=== PATIENT | female | born 1995 | race Caucasian/White ===

== ENCOUNTER 2016-08-09 17:23 | Emergency (ER) | payer MEDICAID, OTHER ==
[~2016-08-09] VITALS: Ht 157.5 cm; Wt 97.5 kg
--- OUTSIDE RECORDS SUMMARY | 2016-08-09 17:32 | XMS REPORT | Continuity of Care Document ---
Author Author Interface Organization Interface Address Unknown Phone Unavailable Problems Problem Status Onset Date Classification Date Reported Comments Source Headache 04/13/2016 04/18/2016 [facility] Visual discomfort, unspecified 04/18/2016 [facility] Nausea with vomiting, unspecified 04/18/2016 [facility] Obesity, unspecified Active Problem 04/18/2016 Added based on documentation of BMI=39.8. [facility] Patient currently (finding) Resolved 12/23/2013 Problem 04/18/2016 [facility] Medications Medication Details Route Status Patient Instructions Ordering Provider Order Date Source Ibuprofen 800 MG Oral Tablet [Motrin] </br>=800 mg, 1 tab, PO, TID, # 40 tab, 0 Refill(s) Active [facility] ferrous sulfate 325 mg oral tablet </br>1 tab, PO, Daily, # 30 tab, 3 Refill(s) Active [facility] multivitamin, Multivitamins oral tablet </br>1 tab, PO, Daily, # 30 tab, 6 Refill(s) Inactive [facility] Docusate Sodium 100 MG Oral Capsule [Colace] </br>=100 mg, 1 cap, PO, BID, PRN for constipation, # 20 cap, 0 Refill(s) Active [facility] {28 (Norethindrone 0.35 MG Oral Tablet) } Pack [Ortho Micronor 28 Day] </br>=0.35 mg, 1 tab, PO, Daily, # 28 tab, 5 Refill(s) Active [facility] ibuprofen 800 mg oral tablet </br>=800 mg, 1 tab, PO, Q8H, # 30 tab, 0 Refill(s) Inactive [facility] Motrin 800 mg oral tablet =800 mg, 1 tab, PO, TID, # 40 tab, 0 Refill(s) Active [facility] Colace sodium 100 mg oral capsule =100 mg, 1 cap, PO, BID, PRN for constipation, # 20 cap, 0 Refill(s) Active [facility] Ortho Micronor 0.35 mg oral tablet =0.35 mg, 1 tab, PO , Daily, # 28 tab, 5 Refill(s) Active [facility] Allergies, Adverse Reactions, Alerts Substance Category Reaction Severity Reaction type Status Date Reported Comments Source penicillins drug allergy Allergy Active [facility] penicillins Assertion Drug allergy [facility] Immunizations Immunization Date Given Site Status Last Updated Comments Source No data available for this section No data available for this section [facility] Results Order Name Results Value Reference Range Date Interpretation Comments Source Patient Viewable Results UA Bili Negative </br>(12/23/2013 11:04:00) <sup> </sup> Negative 12/23/2013 [facility] Patient Viewable Results UA Urobilinogen 0.2 mg/dL 0.2 - 1.0 12/23/2013 [facility] Patient Viewable Results UA Ketones Negative </br>(12/23/2013 11:04:00) <sup> </sup> Negative 12/23/2013 [facility] Patient Viewable Results UA Blood Trace </br>*ABN* </br>(12/23/2013 11:04:00) <sup> </sup> Negative 12/23/2013 [facility] Patient Viewable Results UA Nitrite Negative </br>(12/23/2013 11:04:00) <sup> </sup> Negative 12/23/2013 [facility] Patient Viewable Results UA Protein Negative </br>(12/23/2013 11:04:00) <sup> </sup> Negative 12/23/2013 [facility] Patient Viewable Results UA pH 6.0 </br>(12/23/2013 11:04:00) <sup> </sup> 4.5 - 8.0 12/23/2013 [facility] Patient Viewable Results UA Glucose Negative </br>(12/23/2013 11:04:00) <sup> </sup> Negative 12/23/2013 [facility] Patient Viewable Results UA Sp Grav 1.015 1.003 - 1.030 12/23/2013 [facility] Patient Viewable Results UA Appearance Clear </br>(12/23/2013 11:04:00) <sup> </sup> Clear 12/23/2013 [facility] Patient Viewable Results UA Color Yellow </br>(12/23/2013 11:04:00) <sup> </sup> Yellow 12/23/2013 [facility] Patient Viewable Results UA Leuk Est Negative </br>(12/23/2013 11:04:00) <sup> </sup> Negative 12/23/2013 [facility] Patient Viewable Results NRBC Auto 0.0 /100WBC 2013 [facility] Patient Viewable Results Eos 0.10 10^3/cmm 0.00 - 0.70 02/2014 [facility] Patient Viewable Results Baso 0.10 10^3/cmm 0.00 - 0.15 12/25/2013 [facility] Patient Viewable Results Lymph 2.0 10^3/cmm 1.2 - 3.5 02/2014 [facility] Patient Viewable Results Simpson 1.6 10^3/cmm 0.0 - 0.6 02/2014 [facility] Patient Viewable Results Gran 13.3 10^3/cmm 1.4 - 7.0 02/2014 [facility] Patient Viewable Results Hematocrit 36.9 % 34.0 - 47.0 [facility] Patient Viewable Results MCV 79.4 FL 80.0 - 100.0 2013 [facility] Patient Viewable Results MCHC 31.9 % 32.0 - 36.0 2013 [facility] Patient Viewable Results RDW 16.3 % 11.5 - 14.5 2013 [facility] Patient Viewable Results MCH 25.4 PG 27.0 - 34.0 2013 [facility] Patient Viewable Results Baso % 0.5 % 0.0 - 2.0 2013 [facility] Patient Viewable Results Plt 200 10^3/cmm 150 - 400 2013 [facility] Patient Viewable Results MPV 9.3 FL 7.4 - 10.4 12/25/2013 [facility] Patient Viewable Results Lymph % 11.7 % 22.0 - 50.0 12/25 [facility] Patient Viewable Results Simpson % 9.4 % 1.0 - 9.0 2013 [facility] Patient Viewable Results Gran % 77.9 % 45.0 - 74.0 2013 [facility] Patient Viewable Results Eos % 0.5 % 1.0 - 8.0 2013 [facility] Patient Viewable Results WBC 17.00 10^3/cmm 4.30 - 10.80 12/25/2013 [facility] Patient Viewable Results RBC 4.64 10^6/cmm 4.20 - 5.20 02/2014 [facility] Patient Viewable Results Hemoglobin 11.8 g/dL 12.0 - 16.0 12/25/2013 [facility] Patient Viewable Results ANTIBODY SCREEN Negative </br>(12/23/2013 12:17:00) <sup> </sup> 12/23/2013 [facility] Patient Viewable Results NRBC Auto 0.0 /100WBC 2013 [facility] Patient Viewable Results Baso 0.00 10^3/cmm 0.00 - 0.15 12/23/2013 [facility] Patient Viewable Results Eos 0.00 10^3/cmm 0.00 - 0.70 12/2013 [facility] Patient Viewable Results MPV 8.8 FL 7.4 - 10.4 12/23/2013 [facility] Patient Viewable Results Plt 207 10^3/cmm 150 - 400 2013 [facility] Patient Viewable Results RDW 16.0 % 11.5 - 14.5 2013 [facility] Patient Viewable Results MCHC 33.0 % 32.0 - 36.0 2013 [facility] Patient Viewable Results MCH 26.0 PG 27.0 - 34.0 2013 [facility] Patient Viewable Results Simpson % 9.0 % 1.0 - 9.0 2013 [facility] Patient Viewable Results Lymph % 14.2 % 22.0 - 50.0 12/23 [facility] Patient Viewable Results Lymph 1.1 10^3/cmm 1.2 - 3.5 12/2013 [facility] Patient Viewable Results Baso % 0.2 % 0.0 - 2.0 2013 [facility] Patient Viewable Results Eos % 0.5 % 1.0 - 8.0 2013 [facility] Patient Viewable Results Simpson 0.7 10^3/cmm 0.0 - 0.6 12/2013 [facility] Patient Viewable Results Gran % 76.1 % 45.0 - 74.0 2013 [facility] Patient Viewable Results Gran 6.0 10^3/cmm 1.4 - 7.0 12/2013 [facility] Patient Viewable Results MCV 78.6 FL 80.0 - 100.0 2013 [facility] Patient Viewable Results Hematocrit 38.3 % 34.0 - 47.0 [facility] Patient Viewable Results RBC 4.87 10^6/cmm 4.20 - 5.20 12/2013 [facility] Patient Viewable Results Hemoglobin 12.6 g/dL 12.0 - 16.0 12/23/2013 [facility] Patient Viewable Results WBC 7.90 10^3/cmm 4.30 - 10.80 [facility] Patient Viewable Results ABORH TYPE A POS 12/23/2013 [facility] Patient Viewable Results ABORH TYPE A POS 12/25/2013 [facility] Patient Viewable Results UA Bacteria 1+ </br>*ABN* </br>(12/23/2013 11:04:00) <sup> </sup> 12/23/2013 [facility] Patient Viewable Results UA Squam Epith 5-10 /HPF 12/23 [facility] Patient Viewable Results UA Mucus Trace </br>*ABN* </br>(12/23/2013 11:04:00) <sup> </sup> 12/23/2013 [facility] Patient Viewable Results UA RBC 0-2 /HPF 0 - 3 2013 [facility] Patient Viewable Results UA WBC 0-2 /HPF 0 - 2 2013 [facility] ED Note - Provider ED Note - Provider Patient: ANA MASON Age: 20 years Sex: Female : 89 Associated Diagnoses: None Author: Ryley Callejas Basic Information Additional information: Chief Complaint from Nursing Triage Note : Chief Complaint 04/13/16 11:40 Chief Complaint C/O HEADACHE SINCE YESTERDAY. REPORTS N/V WELL. . History of Present Illness 20yo otherwise healthy female p/w cc: migratory frontal GILBERT with associated photophobia, phonophobia and nausea, with onset yesterday AM. Pain is bilateral frontal, L>R, and moves between forehead and L>R eyes. Character is throbbing and waxes and wanes. Better but not completely alleviated with Advil at home. Pt denies fevers, lightheadedness / vertigo / focal weakness / numbness / tingling, SOA/CP, abd pain. Review of Systems Constitutional symptoms: Negative except as documented in HPI. Skin symptoms: Negative except as documented in HPI. Eye symptoms: Negative except as documented in HPI. ENMT symptoms: Negative except as documented in HPI. Respiratory symptoms: Negative except as documented in HPI. Cardiovascular symptoms: Negative except as documented in HPI. Gastrointestinal symptoms: Negative except as documented in HPI. Genitourinary symptoms: Negative except as documented in HPI. Musculoskeletal symptoms: Negative except as documented in HPI. Neurologic symptoms: Negative except as documented in HPI. Psychiatric symptoms: Negative except as documented in HPI. Endocrine symptoms: Negative except as documented in HPI. Hematologic/Lymphatic symptoms: Negative except as documented in HPI. Allergy/immunologic symptoms: Negative except as documented in HPI. Health Status Allergies: Allergic Reactions (Selected) Severity Not Documented Penicillins- No reactions were documented.. Medications: (Selected) Prescriptions Prescribed Colace sodium 100 mg oral capsule: 100 mg, 1 cap, PO, BID, 20 cap, PRN: for constipation Motrin 800 mg oral tablet: 800 mg, 1 tab, PO, TID, 40 tab Ortho Micronor 0.35 mg oral tablet: 0.35 mg, 1 tab, PO, Daily, 28 tab ferrous sulfate 325 mg oral tablet: 1 tab, PO, Daily, 30 tab multivitamin, Multivitamins oral tablet: 1 tab, PO, Daily, 30 tab. Past Medical/ Family/ Social History PMH: Denies PSxHx: Denies PObHx: 13wk SAB PGyn Hx: Denies STDs. No h/o abn paps PSocHx: Denies drugs, EtOH. Reports tobacco use Meds: PNV, ranitidine Allergies: pcn Physical Examination Vital Signs Vital Signs 04/13/16 11:40 Temperature Route Oral Temperature Oral 98.4 DegF Heart Rate 80 bpm Resp. Rate 16 BRMIN Systolic BP 106 mmHg Diastolic BP 59 mmHg LOW Oxygen Saturation 96 % Oxygen Therapy Room air . General: Alert, no acute distress. Skin: Warm, dry, no pallor, no rash. Head: Normocephalic, atraumatic. Neck: Supple, no tenderness. Eye: Pupils are equal, round and reactive to light, normal conjunctiva. Ears, nose, mouth and throat: Oral mucosa moist, no pharyngeal erythema or exudate. Cardiovascular: Regular rate and rhythm, Normal peripheral perfusion, No edema. Respiratory: Lungs are clear to auscultation, respirations are non-labored, breath sounds are equal, Symmetrical chest wall expansion. Gastrointestinal: Soft, Nontender, Non distended. Back: Nontender, Normal alignment. Speech - regular rate, volume and tone Language: fluent and spontaneous speech CN 2: PERRL CN 3, 4, 6: EOM intact, no nystagmus CN 5: Normal sensation to light touch CN 7: No facial droop CN 8: Equal hearing to finger rub CN 9/10: Intact CN 11: Normal shoulder shrug bilaterally CN 12: Tongue midline Motor exam: Bilateral upper and lower extremities with normal tone, 5/5 strength. No pronator drift. Coordination: Finger to nose normal Gait: steady, narrow gait.. Medical Decision Making Documents reviewed: Emergency department nurses' notes, emergency department records, prior records. Orders Launch Orders Patient Care: Peripheral IV Insertion (Order): 04/13/16 14:46 Pharmacy: Benadryl (Order): 25 mg, IVPush, ONCE Toradol (Order): 30 mg, IVPush, ONCE Compazine (Order): 10 mg, IVPush, ONCE Sodium Chloride 0.9% (Normal Saline bolus) (Order): 1,000 mL, IVPB, ONCE. Reexamination/ Reevaluation Time: 04/13/16 16:34:00 . Assessment: GILBERT resolved after treatment here. Will discharge pt to f/u with PCP. Strict return precautions provided. Pt has been counseled on the plan of care and endorses understanding and approval.. Interventions: PowerOrders Non-Net Orders: ED Discharge Patient (Order): 04/13/16 16:36, Home. Impression and Plan Acute headache ([id number]) Plan Condition: Improved, Stable. Disposition: Discharged: Time 04/13/16 16:35:00, to home. Prescriptions: Med List/Prescriptions (Selected) Prescriptions Prescribe ibuprofen 800 mg oral tablet: 800 mg, 1 tab, PO, Q8H, 30 tab, 0 Refill(s). Patient was given the following educational materials: Migraine Headache. Follow up with: Follow up with primary care provider Within 1 week Follow up with your regular doctor. Try the pain medicine as needed for headaches in the future. You were seen in the Emergency Department and your health condition was deemed not to require admission to the hospital. Although we are confident your condition should improve, it is important to realize that we can only evaluate you during the time that you are in our department. Occasionally, health conditions can worsen upon leaving the Emergency Department. If this should happen, please return and allow us the opportunity to re-evaluate you. It is a pleasure to take care of your health needs at [facility]. Return to the ER if your symptoms worsen, do not improve, or if you develop additional symptoms that are concerning to you. . Counseled: Patient, Regarding diagnosis, Regarding diagnostic results, Regarding treatment plan, Regarding prescription, Patient indicated understanding of instructions. Attending Attestation Teaching-Supervisory Addendum I participated in the following activities of this patient's care: the medical history, the physical exam, medical decision making. I personally performed: the medical history, the physical exam, the medical decision making. The case was discussed with: the resident. Notes: Patient interviewed and examined by me and I agree with above documentation and any changes/corrections are reflected in my note below. . Attending signature: Ulices Bronson. Attending HPI Patient with c/o headache that is worst that most. She states woke up with yesterday. no FH of aneurysms, no recent head injury, no fevers, or neck pain or infectious s/s. Patient has non-focal neuro exam. well appearing. received migraine cocktail prior to my eval and completely resolved pain. okay for dc with f/u 04/13/2016 [facility] ED Discharge Instructions < table cellspacing="1" cellpadding="0" width="95%"><colgroup><col width="35%"></ col><col width="35%"></col><col width="30%"></col></colgroup><tbody><tr><td align="left"><content styleCode="Bold">Title:</content>ED Discharge Instructions </td><td align="left"><content styleCode="Bold">Author:</content>Karel Wright</td><td align="left"><content styleCode="Bold">Date:</content>04/13/16</td ></tr></tbody></table><table cellspacing="1" cellpadding="0" width="95%">< tbody><tr><td>[place] [address] Emergency Department [phone] Emergency Department Discharge Instructions Name : ANA MASON Visit Date: 04/13/2016 11:38 AM Reason For Visit: Headache; GILBERT /VOMITING Case Management Discharge: [employer] Discharge Form Disposition: Discharged Discharge Destination: Home Acuity at Disposition: Stable Diagnosis: GILBERT Discharge Transport Mode: Walk Vital Signs Assessed: Recently assessed Pain Assessed: Recently assessed ED IV Discontinuation: Yes Valuables and Belongings v1 Valuables/Belongings Check On: Departure Valuables and Belongings Admit/DC Clothing: With patient Weapons Declared (Valuables/Belongings): No Comment: Emergency Department Care Providers: Thank you for the opportunity to provide your emergency medical care. It is important that you understand that emergency medical services are not a substitute for complete medical care. For your protection, make arrangements to see the doctor indicated below. All smokers are encouraged to stop smoking. If you would like help, talk to your doctor or call The [place] Tobacco Quitline at 6-383-GOANNOW (4-942-731- 7361). If you have thoughts about committing suicide or otherwise hurting yourself, please call 911 or call Crisis Line at . If your primary care provider is a [facility] physician or you would like to establish care at [facility] please call [phone] to schedule an appointment. If you are a new patient you may have to wait up to 60 days for a scheduled appointment. If you need to establish care sooner, you may want to look for other options. PAYMENT GUIDELINES FOR [facility] PATIENTS: [facility] now requires all self-pay and partial [facility] discount patients to make a down payment before receiving non-emergency care. In most cases, your down payment will be 25 percent of your charges. If you currently receive a 100% [facility] discount , these new guidelines do not apply to you. We accept flynn, check, Visa and MasterCard. If you are a self-pay patient and would like to discuss discounted services or Medicaid, please contact [facility] at [phone]. Remember: at the time of your appointment, you must present a photo ID as well as your insurance card or the required down payment, or your appointment will be rescheduled for another day. If you have commercial insurance and [facility] is not on your list of providers, please call your insurance company and make your follow-up appointment with your PCP or a provider who takes your insurance. ANA MASON has been given the following list of patient education materials, prescriptions and follow-up instructions: Follow-up Instructions: With: Address: When: Follow up with primary care provider Within 1 week Comments: Follow up with your regular doctor. Try the pain medicine as needed for headaches in the future. You were seen in the Emergency Department and your health condition was deemed not to require admission to the hospital. Although we are confident your condition should improve, it is important to realize that we can only evaluate you during the time that you are in our department. Occasionally, health conditions can worsen upon leaving the Emergency Department. If this should happen, please return and allow us the opportunity to re-evaluate you. It is a pleasure to take care of your health needs at [facility]. Return to the ER if your symptoms worsen, do not improve, or if you develop additional symptoms that are concerning to you. Patient Education Materials : Migraine Headache A migraine headache is an intense, throbbing pain on one or both sides of your head. A migraine can last for 30 minutes to several hours. CAUSES The exact cause of a migraine headache is not always known. However, a migraine may be caused when nerves in the brain become irritated and release chemicals that cause inflammation. This causes pain. Certain things may also trigger migraines, such as: Alcohol. Smoking. Stress. Menstruation. Aged cheeses. Foods or drinks that contain nitrates, glutamate, aspartame, or tyramine. Lack of sleep. Chocolate. Caffeine. Hunger. Physical exertion. Fatigue. Medicines used to treat chest pain (nitroglycerine), control pills , estrogen, and some blood pressure medicines. SIGNS AND SYMPTOMS Pain on one or both sides of your head. Pulsating or throbbing pain. Severe pain that prevents daily activities. Pain that is aggravated by any physical activity. Nausea, vomiting, or both. Dizziness. Pain with exposure to bright lights, loud noises, or activity. General sensitivity to bright lights, loud noises, or smells. Before you get a migraine, you may get warning signs that a migraine is coming ( aura). An aura may include: Seeing flashing lights. Seeing bright spots, halos, or zigzag lines. Having tunnel vision or blurred vision. Having feelings of numbness or tingling. Having trouble talking. Having muscle weakness. DIAGNOSIS A migraine headache is often diagnosed based on: Symptoms. Physical exam. A CT scan or MRI of your head. These imaging tests cannot diagnose migraines, but they can help rule out other causes of headaches. TREATMENT Medicines may be given for pain and nausea. Medicines can also be given to help prevent recurrent migraines. HOME CARE INSTRUCTIONS Only take [id number] or prescription medicines for pain or discomfort as directed by your health care provider. The use of long-term narcotics is not recommended. Lie down in a dark, quiet room when you have a migraine. Keep a journal to find out what may trigger your migraine headaches. For example, write down: What you eat and drink. How much sleep you get. Any change to your diet or medicines. Limit alcohol consumption. Quit smoking if you smoke. Get 79 hours of sleep, or as recommended by your health care provider. Limit stress. Keep lights dim if bright lights bother you and make your migraines worse. SEEK IMMEDIATE MEDICAL CARE IF: Your migraine becomes severe. You have a fever. You have a stiff neck. You have vision loss. You have muscular weakness or loss of muscle control. You start losing your balance or have trouble walking. You feel faint or pass out. You have severe symptoms that are different from your first symptoms. MAKE SURE YOU: Understand these instructions. Will watch your condition. Will get help right away if you are not doing well or get worse. This information is not intended to replace advice given to you by your health care provider. Make sure you discuss any questions you have with your health care provider. Document Released: 07/06/2006 Document Revised: 07/27/2015 Document Reviewed: [facility] [place] Patient Information 2016 [employer]. Prescription leaflets: Prescriptions : Prescriptions: ibuprofen (ibuprofen 800 mg oral tablet) 800 mg (1 tab) By Mouth Every 8 hours, 30 tab, 0 Refills, printed prescription Comment: Your Upcoming Appointments/Arlyn [facility] Please bring all home medications to every visit with us at [facility]. Your safety and education around medications is our goal. (Prescription , non prescription and herbal supplements) Date Time Location Appointment Type Provider No Appointments found Future Orders Placed Today/ [facility] Major procedures/tests performed during your ED visit: Laboratory Orders No laboratory orders were placed. Radiology Orders No radiology orders were placed. [ ] (If checked) Do not drive or operate heavy machinery for 12 hours. The exam and treatment that you received today has been provided on an emergency basis only. If your problem worsens or new symptoms appear, contact your doctor or return to this facility for further care. YOU MUST MAKE A FOLLOW-UP APPOINTMENT IN THE CLINIC LISTED ABOVE TO RECEIVE YOUR TEST RESULTS! [facility] Sign up today for [facility] for access to your health records 09/02. [facility] allows you to: Request an appointment Check your lab results Communicate with your providers and care team See provider notes from your visit View immunization records View current medication Sign up Today! Ask your healthcare provider or a [facility] associate for help, or email [email or web address] ISABELLA Segal REBECCA, have received the attached patient education materials/ instructions and have verbalized understanding/Yo recibi educacion, materiales instrucciones de paciente y se me a explicado verbalmente para mi propia comprension: Patient/Guardian Signature Date Firma de paciente/guardian Fecha Witness Signature Date Firma de Testigo Fecha </td></tr></tbody></table> [facility] General Medical Problem *ED <table cellspacing="1" cellpadding="0" width="95%"><colgroup><col width="35%"></ col><col width="35%"></col><col width="30%"></col></colgroup><tbody><tr><td align="left"><content styleCode="Bold">Title:</content>General Medical Problem * ED</td><td align="left"><content styleCode="Bold">Author:</content>Ryley Callejas</td><td align="left"><content styleCode="Bold">Date:</content>04/13/16< /td></tr></tbody></table><table cellspacing="1" cellpadding="0" width="95%">< tbody><tr><td>Impression and Plan Acute headache ([id number]) Plan Condition: Improved, Stable. Disposition: Discharged: Time 04/13/16 16:35:00, to home. Prescriptions: Med List/Prescriptions (Selected) Prescriptions Prescribe ibuprofen 800 mg oral tablet: 800 mg, 1 tab, PO, Q8H, 30 tab, 0 Refill(s). Patient was given the following educational materials: Migraine Headache. Follow up with: Follow up with primary care provider Within 1 week Follow up with your regular doctor. Try the pain medicine as needed for headaches in the future. You were seen in the Emergency Department and your health condition was deemed not to require admission to the hospital. Although we are confident your condition should improve, it is important to realize that we can only evaluate you during the time that you are in our department. Occasionally, health conditions can worsen upon leaving the Emergency Department. If this should happen, please return and allow us the opportunity to re-evaluate you. It is a pleasure to take care of your health needs at [facility]. Return to the ER if your symptoms worsen, do not improve, or if you develop additional symptoms that are concerning to you. . Counseled: Patient, Regarding diagnosis, Regarding diagnostic results, Regarding treatment plan, Regarding prescription, Patient indicated understanding of instructions.</td></tr></tbody></table> [facility] Vital Signs Vital Sign Value Date Comments Source Heart Rate 73 bpm 04/13/2016 [facility] Temperature Oral 98.8 [degF] 04/13/2016 [facility] Resp. Rate 16 BRMIN 2015 [facility] Oxygen Therapy Room air </br>(04/13/16 4:59 PM) 04/13/2016 [facility] Oxygen Saturation 98 % 2015 [facility] Systolic BP 100 mmHg 2015 [facility] Diastolic BP 64 mmHg 2015 [facility] Mean Arterial Pressure 76 mmHg 04/13/2016 [facility] BP Site Right Arm </br>(04/13/16 4:59 PM) 04/13/2016 [facility] Resp. Rate 16 BRMIN 2015 [facility] Temperature Route Oral </br>(04/13/16 11:40 AM) 04/13/2016 [facility] Heart Rate 80 bpm 04/13/2016 [facility] Temperature Oral 98.4 [degF] 04/13/2016 [facility] Systolic BP 106 mmHg 2015 [facility] Diastolic BP 59 mmHg 2015 [facility] Oxygen Saturation 96 % 2015 [facility] Oxygen Therapy Room air </br>(04/13/16 11:40 AM) 04/13/2016 [facility] Temperature Axillary 99.6 [degF] 12/24/2013 [facility] Cuff Size Adult Regular Cuff </br>(12/25/2013 00:30:00) <sup> </sup> 12/25/2013 [facility] BP Site Right Arm </br>(12/25/2013 00:30:00) <sup> </sup> 12/25/2013 [facility] Temperature Axillary 99.4 [degF] 12/24/2013 [facility] Mean Arterial Pressure 87 mmHg 12/26/2013 [facility] Heart Rate 67 bpm 12/26/2013 [facility] Temperature Oral 97.5 [degF] 12/26/2013 [facility] Oxygen Therapy Room air </br>(12/25/2013 20:00:00) <sup> </sup> 12/26/2013 [facility] Oxygen Saturation 97 % 2013 [facility] Resp. Rate 18 BRMIN 2013 [facility] Diastolic BP 75 mmHg 2013 [facility] Systolic BP 111 mmHg 2013 [facility] Temperature Oral 97.8 [degF] 12/25/2013 [facility] Oxygen Saturation 97 % 2013 [facility] Heart Rate 77 bpm 12/25/2013 [facility] Resp. Rate 20 BRMIN 2013 [facility] Mean Arterial Pressure 84 mmHg 12/25/2013 [facility] Diastolic BP 69 mmHg 2013 [facility] Systolic BP 115 mmHg 2013 [facility] Oxygen Therapy Room air </br>(12/25/2013 12:35:00) <sup> </sup> 12/25/2013 [facility] Mean Arterial Pressure 85 mmHg 12/26/2013 [facility] Resp. Rate 16 BRMIN 2013 [facility] Systolic BP 120 mmHg 2013 [facility] Oxygen Saturation 98 % 2013 [facility] Oxygen Therapy Room air </br>(12/26/2013 08:00:00) <sup> </sup> 12/26/2013 [facility] Diastolic BP 68 mmHg 2013 [facility] BP Site Left Arm </br>(12/26/2013 08:00:00) <sup> </sup> 12/26/2013 [facility] Temperature Oral 97.9 [degF] 12/26/2013 [facility] Heart Rate 72 bpm 12/26/2013 [facility] Temperature Axillary 99.1 [degF] 12/24/2013 [facility] Cuff Size Adult Regular Cuff </br>(12/24/2013 19:30:00) <sup> </sup> 12/25/2013 [facility] BP Site Right Arm </br>(12/25/2013 04:15:00) <sup> </sup> 12/25/2013 [facility] Cuff Size Adult Regular Cuff </br>(12/25/2013 04:15:00) <sup> </sup> 12/25/2013 [facility] Encounters Location Location Details Encounter Type Encounter Number Reason For Visit Attending Provider ADM Date DC Date Status Source [facility] Emergency [id number] Ulices Bronsno 04/13/2016 04/14/2016 [facility] [id number] [id number] -NOHELIA CARBAJAL 07/26/2012 07/26/2012 Active [facility] Department Procedures Procedure Code Date Perfomer Comments Source No data available for this section [facility]
[2016-08-09 17:39] VITALS: BP 142/83
[2016-08-09] MEDS ORDERED: RX-NAPROXEN (NAPROSYN) 250 MG TAB PPK#4 PO STA (17:59)
[2016-08-09] MEDS ORDERED: BENZ-13 PO (18:01)
[2016-08-09] MEDS ORDERED: LORA1TAB59 PO (18:01)
[2016-08-09] MEDS ORDERED: METH4TAB PO (18:01)
[2016-08-09] MEDS ORDERED: FLUT9.9S NS (18:01)
--- NOTE | 2016-08-09 18:02 | ED Cough/URI ---
General Chief Complaint: Cough/Cold/Flu Symptoms Stated Complaint: HEADACHE/LOSS APPETITE/COUGH Nursing Triage Note: AMBULATED TO ROOM 08 ET SCARED SHE HAS RSV BECAUSE HER SON TESTED POSITIVE FOR IT YESTERDAY. COMPLAINS OF COUGH AND SEVERE HEADACHE. Source: patient History of Present Illness Time seen by provider: 17:45 Initial Comments PT C/O NON-PRODUCTIVE COUGH AND NASAL CONGESTION/DRAINAGE X 3 DAYS HAS HAD SUBJECTIVE FEVER C/O HEADACHE AND CHEST HURTING WITH COUGHING NO CHEST PAIN OR HEADACHE WHEN NOT COUGHING NO SHORTNESS OF BREATH OR WHEEZING NO BODY ACHES 1 Y.O. SON SEEN LAST PM FOR SAME SYMPTOMS AND TESTED + FOR RSV PT HAS NOT TAKEN ANYTHING FOR SYMPTOMS PCP: LISA--"JUST MOVED HERE A MONTH AGO" Allergies and Home Medications Allergies Coded Allergies: Penicillins (Verified Allergy, Severe, SOA, 08/09/16) Home Medications Benzonatate 100 Mg Capsule #30 1-2 TAB PO TID Prescribed by: JEMIMA GARCIA on 08/09/16 180 Fluticasone Propionate 9.9 Ml [place].susp #1 2 SPRAYS NS BID Prescribed by: JEMIMA GARCIA on 08/09/161800 Loratadine/Pseudoephedrine 1 Each Tab.er.12h #20 1 EACH PO BID Prescribed by: JEMIMA GARCIA on 08/09/16 180 Methylprednisolone 4 Mg Tab.ds.pk #1 4 MG PO UD Prescribed by: JEMIMA GARCIA on 08/09/161800 Constitutional: see HPI fever EENTM: nose congestion see HPI Respiratory: see HPI coughNo short of breath, No wheezing Cardiovascular: see HPI chest pain Gastrointestinal: no symptoms reported Genitourinary: no symptoms reported : No LMP: Aug 02, 2016 (PERIODS IRREGULAR, NO CONTROL) Musculoskeletal: no symptoms reported Skin: no symptoms reported Psychiatric/Neurological: See HPI Headache Hematologic/Lymphatic: No Symptoms Reported Immunological/Allergic: no symptoms reported Past Dpojxih-Wzyuyq-Imrukx Hx Patient Social History Alcohol Use: Occasionally Uses Recreational Drug Use: No Smoking Status: Current Everyday Smoker (1/2 PPD) Recent Foreign Travel: No Contact w/Someone Who Travel: No Recent Infectious Disease Expo: No Recent Hopitalizations: No Physical Abuse Screen: No Sexual Abuse: No Surgeries HX Surgeries: Yes (WISDOM TEETH) Respiratory Hx Respiratory Disorders: No Cardiovascular Hx Cardiac Disorders: No Neurological Hx Neurological Disorders: No Reproductive System Female Reproductive Disorders: Menstrual Problems (IRREGULAR PERIODS) Genitourinary Hx Genitourinary Disorders: No Gastrointestinal Hx Gastrointestinal Disorders: No Musculoskeletal Hx Musculoskeletal Disorders: Yes Musculoskeletal Disorders: Scoliosis Endocrine Hx Endocrine Disorders: No HEENT HX ENT Disorders: No Cancer Hx Cancer: No Psychosocial Hx Psychiatric Problems: No Integumentary HX Skin/Integumentary Disorder: No Blood Transfusions Hx Blood Disorders: No Physical Exam Vital Signs Vital Sign - Last 12Hours 08/09/16 17:39 Temp 97.2 Pulse 86 Resp 18 B/P 142/83 Pulse Ox 98 O2 Delivery Room Air Capillary Refill : Less Than 3 Seconds General Appearance: WD/WN no apparent distress other (SMILING, DOES NOT APPEAR ILL. NO COUGH NOTED AT ANY TIME) HEENT: PERRL/EOMI TMs normal pharynx normalNo photophobia, other (VERY MILD NASAL MUCOSAL EDEMA AND CLEAR POST NASAL DRAINAGE. NO SINUS TENDERNESS) Neck: non-tender full range of motion supple normal inspectionNo lymphadenopathy (R), No lymphadenopathy (L) Respiratory: normal breath sounds no respiratory distress no accessory muscle use Cardiovascular: regular rate, rhythm no edema no JVD no murmur Gastrointestinal: normal bowel sounds non tender soft no organomegaly Extremities: normal inspection Neurologic/Psychiatric: ginseng farmer II-XII nml as tested no motor/sensory deficits alert normal mood/affect oriented x 3 Skin: normal color warm/dry Progress/Results/Core Measures Results/Orders My Orders Orders-JEMIMA GARCIA DO Rx-Naproxen (Rx-Naprosyn) (08/09/16 17:59) Benzonatate Capsule (Tessalon Perles) (08/09/16 21:00) Vital Signs/I&O Vital Sign - Last 12Hours 08/09/16 17:39 Temp 97.2 Pulse 86 Resp 18 B/P 142/83 Pulse Ox 98 O2 Delivery Room Air Blood Pressure Mean: 102 Departure Impression Impression: Primary Impression: Viral upper respiratory infection Disposition: 01 HOME, SELF-CARE Condition: Stable Departure-Patient Inst. Referrals: [facility] Patient Instructions: Viral Upper Respiratory Infection, Adult (DC) Add. Discharge Instructions: LOTS OF CLEAR LIQUIDS TYLENOL 1 GRAM EVERY 6 HOURS NEEDED FOR PAIN OR FEVER ROBITUSSIN DM FOR COUGH FOLLOW UP WITH [facility] IN 4-5 DAYS IF NO BETTER All discharge instructions reviewed with patient and/or family. Voiced understanding. Scripts Loratadine/Pseudoephedrine (Claritin-D 12 Hour Tablet)1 Each Tab.er.12h1 Each PO BID #20 TAB Prov:JEMIMA GARCIA DO 08/09/16 Fluticasone Propionate (Flonase Allergy Relief)9.9 Ml [place].susp2 Sprays NS BID #1 SPRAY Prov:JEMIMA GARCIA DO 08/09/16 Benzonatate (Tessalon Perle)100 Mg Capsule1-2 Tab PO TID Cough #30 CAP Prov:JEMIMA GARCIA DO 08/09/16 Methylprednisolone (Medrol)4 Mg Tab.ds.pk4 Mg PO UD #1 PKG Prov:JEMIMA GARCIA DO 08/09/16 JEMIMA GARCIA DO Aug 09, 2016 18:02
[2016-08-09] MEDS ORDERED: BENZONATATE 100 MG (TESSALON) CAPSULE PO SCH (21:00)
== END 2016-08-09 18:07 | disposition home or self-care (01) ==
LOC: EDUNIT# 17:23 → ER 17:27
DX: J06.9 Acute upper respiratory infection, unspecified (principal); F17.210 Nicotine dependence, cigarettes, uncomplicated
CPT/HCPCS: 99281

== ENCOUNTER 2016-12-06 19:01 | Emergency (ER) | payer MEDICAID ==
[~2016-12-06] VITALS: Ht 157.5 cm; Wt 97.5 kg
[~2016-12-06 19:01] MED LIST: BENZ-13 PO; FLUT9.9S NS; LORA1TAB59 PO; METH4TAB PO
[2016-12-06] MEDS ORDERED: ACET-789 PO (19:19)
--- NOTE | 2016-12-06 19:20 | ED Cough/URI ---
General Chief Complaint: Cough/Cold/Flu Symptoms Stated Complaint: EYE PAIN/COUGH Nursing Triage Note: COUGH, NASAL CONGESTION Source: patient Exam Limitations: no limitations History of Present Illness Time seen by provider: 19:17 Initial Comments ER with reports of a headache when coughing, a productive cough, nasal congestion, mild sore throat and ear pain. These began 2 days ago. No fevers. Timing/Duration: other (2 days ago) Severity/Quality: productive cough Associated Symptoms: cough Allergies and Home Medications Allergies Coded Allergies: Penicillins (Verified Allergy, Severe, SOA, 08/09/16) Home Medications Loratadine/Pseudoephedrine 1 Each Tab.er.12h, 1 EACH PO BID, #20 Prescribed by: JEMIMA GARCIA on 08/09/16 1801 Constitutional: see HPI, No chills, No fever EENTM: ear pain, nose congestion, see HPI Respiratory: see HPI, cough Cardiovascular: no symptoms reported Genitourinary: no symptoms reported Musculoskeletal: no symptoms reported Skin: no symptoms reported Past Sudazms-Wxgfkq-Omsmuw Hx Patient Social History Alcohol Use: Occasionally Uses Recreational Drug Use: No Smoking Status: Current Everyday Smoker Type Used: Cigarettes 2nd Hand Smoke Exposure: Yes Recent Foreign Travel: No Contact w/Someone Who Travel: No Recent Infectious Disease Expo: No Recent Hopitalizations: No Immunizations Up To Date Tetanus Booster (TDap): Unknown Seasonal Allergies Seasonal Allergies: No Surgeries HX Surgeries: Yes (WISDOM TEETH) Respiratory Hx Respiratory Disorders: No Cardiovascular Hx Cardiac Disorders: No Neurological Hx Neurological Disorders: No Reproductive System Female Reproductive Disorders: Menstrual Problems Genitourinary Hx Genitourinary Disorders: No Gastrointestinal Hx Gastrointestinal Disorders: No Musculoskeletal Hx Musculoskeletal Disorders: Yes Musculoskeletal Disorders: Scoliosis Endocrine Hx Endocrine Disorders: No HEENT HX ENT Disorders: No Cancer Hx Cancer: No Psychosocial Hx Psychiatric Problems: No Integumentary HX Skin/Integumentary Disorder: No Blood Transfusions Hx Blood Disorders: No Physical Exam Vital Signs Vital Sign - Last 12Hours 12/06/16 19:12 Temp 99.0 Pulse 100 Resp 18 B/P (MAP) 130/83 Pulse Ox 96 O2 Delivery Room Air Capillary Refill : Less Than 3 Seconds General Appearance: WD/WN, no apparent distress Eyes: Bilateral Eye EOMI, Bilateral Eye Normal Inspection, Bilateral Eye PERRL HEENT: PERRL/EOMI, normal ENT inspection, other (unable to visualize either tympanic membrane due to cerumen) Neck: non-tender, full range of motion, No lymphadenopathy (R), No lymphadenopathy (L) Respiratory: no respiratory distress, no accessory muscle use Cardiovascular: regular rate, rhythm, no murmur Gastrointestinal: normal bowel sounds, non tender, soft Neurologic/Psychiatric: alert, normal mood/affect, oriented x 3 Skin: normal color, warm/dry Progress/Results/Core Measures Results/Orders Vital Signs/I&O Vital Sign - Last 12Hours 12/06/16 12/06/16 19:12 19:12 Temp 99.0 Pulse 100 Resp 18 B/P (MAP) 130/83 Pulse Ox 96 O2 Delivery Room Air Room Air Blood Pressure Mean: 99 Departure Impression Impression: Primary Impression: Viral upper respiratory infection Disposition: 01 HOME, SELF-CARE Condition: Stable Departure-Patient Inst. Decision time for Depature: 19:18 Referrals: NO,LOCAL PHYSICIAN (PCP/Family) Primary Care Physician Patient Instructions: Viral Upper Respiratory Infection, Adult (DC) Add. Discharge Instructions: 1. Return to ER for any worsening such as fevers or other worsening symptoms 2. See your doctor next week if you fail to improve 3. All discharge instructions reviewed with patient and/or family. Voiced understanding. Scripts Acetaminophen with Codeine (Tylenol with Codeine #3 Tablet) 1 Each Tablet 1 EACH PO Q4H Y for COUGH, #14 TAB Prov: RACHEL KAY APRN 12/06/16 Work/School Note: Work Release Form Date Seen in the Emergency Department: December 06, 2016 Return to Work: December 08, 2016 Restrictions: No Restrictions RACHEL KAY APRN December 06, 2016 19:20
[2016-12-06 19:25] VITALS: BP 130/83
[2016-12-06] MEDS ORDERED: DEXAMETHASONE PF 10 MG/ML (DECADRON) VIAL IM ONE (19:30)
== END 2016-12-06 19:23 | disposition home or self-care (01) ==
LOC: EDUNIT# 19:01 → ER 19:03
DX: J06.9 Acute upper respiratory infection, unspecified (principal); F17.210 Nicotine dependence, cigarettes, uncomplicated
CPT/HCPCS: 96372; 99282

== ENCOUNTER 2016-12-14 17:44 | Emergency (ER) | payer MEDICAID ==
[~2016-12-14] VITALS: Ht 160 cm; Wt 94.3 kg
[~2016-12-14 17:44] MED LIST changes: +ACET-789 PO
[2016-12-14] MEDS ORDERED: PERM60CR17 TP (18:30)
--- NOTE | 2016-12-14 18:30 | ED Integumentary General ---
General Chief Complaint: Skin/Wound Problems Stated Complaint: RASH Source: patient Exam Limitations: no limitations History of Present Illness Time seen by provider: 18:26 Initial Comments Patient has had a itchy red rash to her buttocks and lower extremities for week. Her son has a similar rash. No fevers. No allergen exposure. Allergies and Home Medications Allergies Coded Allergies: Penicillins (Verified Allergy, Severe, SOA, 08/09/16) Home Medications Acetaminophen with Codeine 1 Each Tablet, 1 EACH PO Q4H PRN for COUGH, #14 Prescribed by: RACHEL KAY on 12/06/16 1919 Loratadine/Pseudoephedrine 1 Each Tab.er.12h, 1 EACH PO BID, #20 Prescribed by: JEMIMA GARCIA on 08/09/16 1801 Constitutional: No fever Respiratory: no symptoms reported Cardiovascular: no symptoms reported Skin: see HPI, rash Past Hgtekcv-Gfxdec-Bexydk Hx Patient Social History Type Used: Cigarettes 2nd Hand Smoke Exposure: Yes Recent Foreign Travel: No Contact w/Someone Who Travel: No Recent Hopitalizations: No Immunizations Up To Date Tetanus Booster (TDap): Unknown Seasonal Allergies Seasonal Allergies: No Surgeries HX Surgeries: Yes (WISDOM TEETH) Respiratory Hx Respiratory Disorders: No Cardiovascular Hx Cardiac Disorders: No Neurological Hx Neurological Disorders: No Reproductive System Female Reproductive Disorders: Menstrual Problems Genitourinary Hx Genitourinary Disorders: No Gastrointestinal Hx Gastrointestinal Disorders: No Musculoskeletal Hx Musculoskeletal Disorders: Yes Musculoskeletal Disorders: Scoliosis Endocrine Hx Endocrine Disorders: No HEENT HX ENT Disorders: No Cancer Hx Cancer: No Psychosocial Hx Psychiatric Problems: No Integumentary HX Skin/Integumentary Disorder: No Blood Transfusions Hx Blood Disorders: No Reviewed Nursing Assessment Reviewed/Agree w Nursing PMH: Yes Physical Exam Vital Signs Capillary Refill : General Appearance: WD/WN, no apparent distress Neck: supple Cardiovascular: regular rate, rhythm Respiratory: no respiratory distress Extremities: normal inspection Neurologic/Psychiatric: alert, normal mood/affect Skin: rash (linear linear excoriations with burrows consistent with scabies mostly involving her buttocks and lower extremities.) Departure Impression Impression: Primary Impression: Scabies Disposition: 01 HOME, SELF-CARE Condition: Stable Departure-Patient Inst. Decision time for Depature: 18:28 Referrals: NO,LOCAL PHYSICIAN (PCP/Family) Primary Care Physician Patient Instructions: Scabies Scripts Permethrin (Elimite) 60 Gm Cream..g. 60 GM TP ONCE for Rash for 1 Day, TUBE 1 Refill Prov: LILIANA SUÁREZ MD 12/14/16 LILIANA SUÁREZ MD December 14, 2016 18:30
[2016-12-14 18:47] VITALS: BP 128/70
== END 2016-12-14 18:47 | disposition home or self-care (01) ==
LOC: EDUNIT# 17:44 → ER 17:45
DX: B86 Scabies (principal)
CPT/HCPCS: 99281

== ENCOUNTER 2017-07-12 18:31 | Emergency (ER) | payer MEDICAID ==
[~2017-07-12] VITALS: Ht 152.4 cm; Wt 97.5 kg
[~2017-07-12 18:31] MED LIST changes: +PERM60CR17 TP
--- OUTSIDE RECORDS SUMMARY | 2017-07-12 18:37 | XMS REPORT | Continuity of Care Document ---
Demographics Preferred Language Unknown Marital Status Unknown Muslim Affiliation Unknown Race Unknown Ethnic Group Unknown Author Author [facility] Address Unknown Phone Unavailable Allergies Active Description Code Type Severity Reaction Onset Reported/Identified Relationship to Patient Clinical Status Yes Penicillins Drug Allergy 05/22/2009 Medications There is no data. Problems Date Dx Coded Attending Type Code Diagnosis Diagnosed By 03/20/2009 465.9 UPPER RESPIRATORY INFECTION ACUTE 06/27/2009 V25.41 visit for: contraceptive surveillance pill 09/12/2009 477.9 RHINITIS Procedures There is no data. Results There is no data. Encounters ACCT No. Visit Date/Time Discharge Status Pt. Type Provider Facility Loc./Unit Complaint [id number] 09/12/2009 11:06:00 09/12/2009 23:59:59 CLS Outpatient
--- OUTSIDE RECORDS SUMMARY | 2017-07-12 18:37 | XMS REPORT | Continuity of Care Document ---
Author Author [employer] Organization [facility] Address Unknown Phone Unavailable Care Team Providers Care Waste Management Specialist Name Role Phone [employer] Unavailable Unavailable Problems Problem Status Onset Date Classification Date Reported Comments Source Headache 04/13/2016 04/18/2016 [facility] Patient currently (finding) Resolved 12/23/2013 Problem 04/18/2016 [facility] Visual discomfort, unspecified 04/18/2016 [facility] Nausea with vomiting, unspecified 04/18/2016 [facility] Obesity, unspecified Active Problem 04/18/2016 Added based on documentation of BMI=39.8. [facility] Medications Medication Details Route Status Patient Instructions Ordering Provider Order Date Source Ibuprofen 800 MG Oral Tablet [Motrin]
</br>=800 mg , 1 tab, PO, TID, # 40 tab, 0 Refill(s) Active [facility] ferrous sulfate 325 mg oral tablet
</br>1 tab, PO , Daily, # 30 tab, 3 Refill(s) Active [facility] multivitamin, Multivitamins oral tablet
</br>1 tab, PO, Daily, # 30 tab, 6 Refill(s) Inactive [facility] Docusate Sodium 100 MG Oral Capsule [Colace]
</br> =100 mg, 1 cap, PO, BID, PRN for constipation, # 20 cap, 0 Refill(s) Active [facility] {28 (Norethindrone 0.35 MG Oral Tablet) } Pack [Ortho Micronor 28 Day]
</br>=0.35 mg, 1 tab, PO, Daily, # 28 tab, 5 Refill(s) Active [facility] ibuprofen 800 mg oral tablet
</br>=800 mg, 1 tab, PO, Q8H, # 30 tab, 0 Refill(s) Inactive [facility] Motrin 800 mg oral tablet =800 mg, 1 tab, PO, TID, # 40 tab, 0 Refill(s) Active [facility] Colace sodium 100 mg oral capsule =100 mg, 1 cap, PO, BID, PRN for constipation, # 20 cap, 0 Refill(s) [facility] Ortho Micronor 0.35 mg oral tablet =0.35 mg, 1 tab, PO , Daily, # 28 tab, 5 Refill(s) [facility] Allergies, Adverse Reactions, Alerts Substance Category Reaction Severity Reaction type Status Date Reported Comments Source penicillins drug allergy Allergy Active [facility] penicillins Assertion Drug allergy [facility] Immunizations Immunization Date Given Site Status Last Updated Comments Source No data available for this section No data available for this section [facility] Results Order Name Results Value Reference Range Date Interpretation Comments Source ED Note - Provider ED Note - [...] 16:36, Home. Impression and Plan Acute headache ([id number]) Plan Condition: Improved, Stable. Disposition: Discharged: [...] take care of your health needs at [facility]. Return to the ER if your symptoms [...] my note below. . Attending signature: Ulices Bronson Attending HPI Patient with c/o headache that is worst that most. She states woke up with yesterday. no FH of aneurysms, no recent head injury, no fevers, or neck pain or infectious s/s. Patient has non-focal neuro exam. well appearing. received migraine cocktail prior to my eval and completely resolved pain. okay for dc with f/u 04/13/2016 [facility] Patient Viewable Results NRBC Auto 0.0 /100WBC 2013 [facility] Patient Viewable Results ANTIBODY SCREEN Negative (12/23/2013 12:17:00) [facility] Patient Viewable Results UA Bili Negative (12/23/2013 11:04:00) Negative 12/23/2013 [facility] Vital Signs Vital Sign Value Date Comments Source Heart Rate 73 bpm 04/13/2016 [facility] Temperature Oral 98.8 [degF] 04/13/2016 [facility] Resp. Rate 16 BRMIN 2015 [facility] Oxygen Therapy Room air
</br>(04/13/16 4:59 PM) 04/13/2016 [facility] Oxygen Saturation 98 % 2015 [facility] Systolic BP 100 mmHg 2015 [facility] Diastolic BP 64 mmHg 2015 [facility] Mean Arterial Pressure 76 mmHg 04/13/2016 [facility] BP Site Right Arm
</br>(04/13/16 4:59 PM) 04/13/2016 [facility] Resp. Rate 16 BRMIN 2015 [facility] Temperature Route Oral
</br>(04/13/16 11:40 AM) 04/13/2016 [facility] Heart Rate 80 bpm 04/13/2016 [facility] Temperature Oral 98.4 [degF] 04/13/2016 [facility] Systolic BP 106 mmHg 2015 [facility] Diastolic BP 59 mmHg 2015 [facility] Oxygen Saturation 96 % 2015 [facility] Oxygen Therapy Room air
</br>(04/13/16 11:40 AM) 04/13/2016 [facility] Mean Arterial Pressure 85 mmHg 12/26/2013 [facility] Resp. Rate 16 BRMIN 2013 [facility] Systolic BP 120 mmHg 2013 [facility] Oxygen Saturation 98 % 2013 [facility] Oxygen Therapy Room air
</br>(12/26/2013 08:00:00 ) <sup> </sup> 12/26/2013 [facility] Diastolic BP 68 mmHg 2013 [facility] BP Site Left Arm
</br>(12/26/2013 08:00:00) <sup> </sup> 12/26/2013 [facility] Temperature Oral 97.9 [degF] 12/26/2013 [facility] Heart Rate 72 bpm 12/26/2013 [facility] Mean Arterial Pressure 87 mmHg 12/26/2013 [facility] Heart Rate 67 bpm 12/26/2013 [facility] Temperature Oral 97.5 [degF] 12/26/2013 [facility] Oxygen Therapy Room air
</br>(12/25/2013 20:00:00 ) <sup> </sup> 12/26/2013 [facility] Oxygen Saturation 97 % 2013 [facility] Resp. Rate 18 BRMIN 2013 [facility] Diastolic BP 75 mmHg 2013 [facility] Systolic BP 111 mmHg 2013 [facility] Temperature Oral 97.8 [degF] 12/25/2013 [facility] Oxygen Saturation 97 % 2013 [facility] Heart Rate 77 bpm 12/25/2013 [facility] Resp. Rate 20 BRMIN 2013 [facility] Mean Arterial Pressure 84 mmHg 12/25/2013 [facility] Diastolic BP 69 mmHg 2013 [facility] Systolic BP 115 mmHg 2013 [facility] Oxygen Therapy Room air
</br>(12/25/2013 12:35:00 ) <sup> </sup> 12/25/2013 [facility] BP Site Right Arm
</br>(12/25/2013 04:15:00) <sup > </sup> 12/25/2013 [facility] Cuff Size Adult Regular Cuff
</br>(12/25/2013 04: 15:00) <sup> </sup> 12/25/2013 [facility] Cuff Size Adult Regular Cuff
</br>(12/25/2013 00: 30:00) <sup> </sup> 12/25/2013 [facility] BP Site Right Arm
</br>(12/25/2013 00:30:00) <sup > </sup> 12/25/2013 [facility] Cuff Size Adult Regular Cuff
</br>(12/24/2013 19: 30:00) <sup> </sup> 12/25/2013 [facility] Temperature Axillary 99.6 [degF] 12/24/2013 [facility] Temperature Axillary 99.1 [degF] 12/24/2013 [facility] Temperature Axillary 99.4 [degF] 12/24/2013 [facility] Encounters Location Location Details Encounter Type Encounter Number Reason For Visit Attending Provider ADM Date DC Date Status Source [facility] [id number] [id number] -NOHELIA CARBAJAL 07/26/2012 07/26/2012 [facility] Emergency [id number] Ulices Bronson 04/13/2016 04/14/2016 [facility] Procedures Procedure Code Date Perfomer Comments Source No data available for this section [facility] Plan of Care Social History Assessment and Plan Date Assessment and Plan Source Author:Karel Wright Title:ED Discharge Instructions Date:04/13/16 [place] [address] Emergency Department [phone] Emergency Department Discharge Instructions Name : ANA [...] talk to your doctor or call [facility] [place] [facility] at [phone] ([phone]). If you have thoughts about committing suicide or otherwise hurting yourself, please call 911 or call Crisis Line at . If your primary care provider is a [facility] physician or you would like to establish care at [facility] please call [phone] to schedule an appointment. If you are a new patient you may have to wait up to 60 days for a scheduled appointment. If you need to establish care sooner, you may want to look for other options. PAYMENT GUIDELINES FOR [facility] PATIENTS: [facility] now requires all self-pay and partial [facility] discount patients to make a down payment before receiving non-emergency care. In most cases, your down payment will be 25 percent of your charges. If you currently receive a 100% [facility] discount , these new guidelines do not apply to you. We accept flynn, check, Visa and MasterCard. If you are a self-pay patient and would like to discuss discounted services or Medicaid, please contact [facility] s [facility] at [phone]. Remember: at the time of your appointment, you must present a photo ID as well as your insurance card or the required down payment, or your appointment will be rescheduled for another day. If you have commercial insurance and [facility] is not on your list of providers, [...] take care of your health needs at [facility]. Return to the ER if your symptoms [...] used to treat chest pain (nitroglycerine), control pills, estrogen, and some blood pressure medicines. SIGNS [...] recurrent migraines. HOME CARE INSTRUCTIONS Only take fzam-zeu-reajkiy or prescription medicines for pain or discomfort [...] consumption. Quit smoking if you smoke. Get 7 9 hours of sleep, or as recommended by [...] Released: 07/06/2006 Document Revised: 07/27/2015 Document Reviewed: [facility] Patient Information 2016 [employer] Prescription leaflets: Prescriptions : Prescriptions: ibuprofen (ibuprofen 800 mg oral tablet) 800 mg (1 tab) By Mouth Every 8 hours, 30 tab, 0 Refills, printed prescription Comment: Your Upcoming Appointments/[place] Please bring all home medications to every visit with us at [facility]. Your safety and education around [...] RESULTS! Take Charge of Your Health with [facility] Sign up today for [facility] for access to your health records 09/02. [facility] allows you to: Request an appointment Check your lab results Communicate with your providers and care team See provider notes from your visit View immunization records View current medication Sign up Today! Ask your healthcare provider or a [facility] associate for help, or email [email or web address] ISABELLA Segal REBECCA, have received the attached patient education materials/ instructions and have verbalized understanding/Yo recibi educacion, materiales instrucciones de paciente y se me a explicado verbalmente para mi propia comprension: Patient/Guardian Signature Date Firma de paciente/guardian Fecha Witness Signature Date Firma de Testigo Fecha [facility] Author:Ryley Callejas Title:General Medical Problem *ED Date:04/13/16 Impression and Plan Acute headache ([id number] R51) Plan Condition: Improved, Stable. Disposition: Discharged: [...] take care of your health needs at [facility]. Return to the ER if your symptoms worsen, do not improve, or if you develop additional symptoms that are concerning to you. . Counseled: Patient, Regarding diagnosis, Regarding diagnostic results, Regarding treatment plan, Regarding prescription, Patient indicated understanding of instructions. [facility] Family History Value Date Source Advance Directives Order Name Results Value Date Source
[2017-07-12 19:31] LABS: BILIRUBIN,URINE NEGATIVE (NEGATIVE); KETONES,URINE NEGATIVE (NEGATIVE); LEUKOCYTE ESTERASE ,URINE 3+ (NEGATIVE); NITRITE,URINE NEGATIVE (NEGATIVE); PH,URINE 5 (5-9); PROTEIN,URINE 1+ (NEGATIVE); UROBILINOGEN,URINE NORMAL (NORMAL)
[2017-07-12 19:41] LABS: SQUAMOUS EPITHELIAL CELL,UR >50 /HPF
[2017-07-12] MEDS ORDERED: predniSONE 20 MG TAB PO ONE (19:45)
[2017-07-12] MEDS ORDERED: KETOROLAC 60 MG/2 ML VIAL IM ONE (19:45)
[2017-07-12] MEDS ORDERED: RX-TRAMADOL 50 MG (ULTRAM) TAB PPK#4 PO STA (20:13)
[2017-07-12] MEDS ORDERED: RX-TRIMETH/SULFA. 160-800 MG (BACTRIM DS) TAB PPK#2 PO STA (20:17)
--- NOTE | 2017-07-12 20:17 | ED Back Pain ---
General Chief Complaint: Back Problems Stated Complaint: BACK PAIN Nursing Triage Note: pt reports r sided back pain starting 3 days ago. pt reports unknown injury. pt states pain is worse with movement. Nursing Sepsis Screen: No Definite Risk Allergies and Home Medications Allergies Coded Allergies: Penicillins (Verified Allergy, Severe, SOA, 08/09/16) Home Medications Acetaminophen with Codeine 1 Each Tablet, 1 EACH PO Q4H PRN for COUGH, #14 Prescribed by: RACHEL KAY on 12/06/16 1919 Loratadine/Pseudoephedrine 1 Each Tab.er.12h, 1 EACH PO BID, #20 Prescribed by: JEMIMA GARCIA on 08/09/16 1801 Permethrin 60 Gm Cream..g., 60 GM TP ONCE for 1 Days, Ref 1 Prescribed by: LILIANA SUÁREZ on 12/14/16 1830 Past Cxdqbdy-Gdgvfu-Effazr Hx Patient Social History Alcohol Use: Occasionally Uses Number of Drinks Today: AA Alcohol Beverage of Choice: Beer Recreational Drug Use: No Smoking Status: Current Everyday Smoker Type Used: Cigarettes 2nd Hand Smoke Exposure: Yes Recent Foreign Travel: No Contact w/Someone Who Travel: No Recent Infectious Disease Expo: No Recent Hopitalizations: No Physical Abuse: No Sexual Abuse: No Mistreated: No Fear: No Immunizations Up To Date Tetanus Booster (TDap): Unknown Seasonal Allergies Seasonal Allergies: No Surgeries History of Surgeries: Yes (WISDOM TEETH) Respiratory History of Respiratory Disorde: No Cardiovascular History of Cardiac Disorders: No Neurological History of Neurological Disord: No Reproductive System : No Female Reproductive Disorders: Menstrual Problems Genitourinary History of Genitourinary Disor: No Gastrointestinal History of Gastrointestinal Di: No Musculoskeletal History of Musculoskeletal Dis: Yes Musculoskeletal Disorders: Scoliosis Endocrine History of Endocrine Disorders: No HEENT History of HEENT Disorders: No Cancer History of Cancer: No Psychosocial History of Psychiatric Problem: No Suicide Risk Score: 0 Integumentary History of Skin or Integumenta: No Blood Transfusions History of Blood Disorders: No Physical Exam Vital Signs Vital Sign - Last 12Hours 07/12/17 19:11 Temp 97.9 Pulse 86 Resp 14 B/P (MAP) 115/57 (76) Pulse Ox 100 Capillary Refill : Less Than 3 Seconds Progress/Results/Core Measures Results/Orders Lab Results Laboratory Tests Test 07/12/17 19:20 Range/Units Urine Color YELLOW Urine Clarity SLIGHTLY CLOUDY Urine pH 5 5-9 Urine Specific [place] 1.025 H 1.016-1.022 Urine Protein 1+ H NEGATIVE Urine Glucose (UA) NEGATIVE NEGATIVE Urine Ketones NEGATIVE NEGATIVE Urine Nitrite NEGATIVE NEGATIVE Urine Bilirubin NEGATIVE NEGATIVE Urine Urobilinogen NORMAL NORMAL MG/DL Urine Leukocyte Esterase 3+ H NEGATIVE Urine RBC (Auto) NEGATIVE NEGATIVE Urine RBC 0-2 /HPF Urine WBC 10-25 H /HPF Urine Squamous Epithelial Cells >50 H /HPF Urine Renal Epithelial Cells NONE /HPF Urine Crystals NONE /LPF Urine Bacteria MODERATE H /HPF Urine Casts NONE /LPF Urine Mucus NEGATIVE /LPF Urine Culture Indicated YES My Orders Orders - LEA HART MD Ua Culture If Indicated (07/12/17 19:25) Tramadol Tablet (Ultram Tablet) (07/12/17 19:45) Ketorolac Injection (Toradol Injection) (07/12/17 19:45) Prednisone Tablet (Deltasone Tablet) (07/12/17 19:45) Urine Culture (07/12/17 19:20) Rx-Tramadol Hcl (Rx-Ultram) (07/12/17 20:13) Rx-Trimeth/Sulfameth Ds Tab (Rx-Bactrim/ (07/12/17 20:17) Medications Given in ED Current Medications Medications Dose Ordered Sig/Dalton Route Start Time Stop Time Status Last Admin Dose Admin Ketorolac Tromethamine 60 mg ONCE ONCE IM 07/12/17 19:45 07/12/17 19:46 DC 07/12/17 19:46 60 MG Prednisone 40 mg ONCE ONCE PO 07/12/17 19:45 07/12/17 19:46 DC 07/12/17 19:46 40 MG Tramadol HCl 50 mg ONCE ONCE PO 07/12/17 19:45 07/12/17 19:46 DC 07/12/17 19:46 50 MG Vital Signs/I&O Vital Sign - Last 12Hours 07/12/17 19:11 Temp 97.9 Pulse 86 Resp 14 B/P (MAP) 115/57 (76) Pulse Ox 100 Blood Pressure Mean: 76 Departure Impression Impression: Primary Impression: Lower back pain Qualified Codes: M54.5 - Low back pain Additional Impression: Urinary tract infection Qualified Codes: N39.0 - Urinary tract infection, site not specified Disposition: 01 HOME, SELF-CARE Condition: Improved Departure-Patient Inst. Decision time for Depature: 20:00 Referrals: NO,LOCAL PHYSICIAN (PCP/Family) Primary Care Physician Patient Instructions: Low Back Pain (DC), Urinary Tract Infections in Adults Add. Discharge Instructions: Drink plenty of clear liquids. Complete one week of antibiotics as prescribed. Follow-up on your urine culture with your primary care provider on Thursday to ensure you're taking the right antibiotic for your bladder infection. For your back pain you may continue taking naproxen (Aleve) up to 500 mg twice daily. For additional pain relief you may take Ultram (tramadol) as prescribed as well as Tylenol (acetaminophen) up to 1000 mg every 6 hours as needed. Gentle heat and gentle stretching may also be helpful. Return to care if symptoms worsen. All discharge instructions reviewed with patient and/or family. Voiced understanding. Scripts Tramadol HCl (Ultram) 50 Mg Tablet 50 MG PO QID Y for PAIN-MODERATE TO SEVERE, #10 TAB Prov: LEA HART MD 07/12/17 Sulfamethoxazole/Trimethoprim (Bactrim Ds Tablet) 1 Each Tablet 1 EACH PO BID, #10 TAB Prov: LEA HART MD 07/12/17 Prednisone (Prednisone) 20 Mg Tab 20 MG PO DAILY, #3 TAB Prov: LEA HART MD 07/12/17 LEA HART MD Jul 12, 2017 20:17
[2017-07-12] MEDS ORDERED: SULF1TAB35 PO (20:24)
[2017-07-12] MEDS ORDERED: PRD20T PO (20:24)
[2017-07-12] MEDS ORDERED: TRAM-42 PO (20:24)
[2017-07-12 20:31] VITALS: BP 115/57
== END 2017-07-12 20:31 | disposition home or self-care (01) ==
LOC: EDUNIT# 18:31 → ER 18:34
DX: M54.5 Low back pain (principal); N39.0 Urinary tract infection, site not specified; F17.210 Nicotine dependence, cigarettes, uncomplicated
CPT/HCPCS: 81000; 87088; 99284